=== PATIENT | male | born 1955 | race Caucasian/White ===

== ENCOUNTER 2021-07-18 06:25 | Day surgery (SDC) | payer MEDICARE, SELFPAY ==
[2021-07-12 14:37] VITALS: BMI 32.3
--- NOTE | 2021-07-17 10:32 | P.CONAN_ITS ---
Documented by User: Cate Edwards NP 07/17/21 10:32 HPI - Anesthesia Eval Consult details Narrative: 66yo M for Colonoscopy [facility] Past Medical History Medical History (Updated 07/12/21 @ 14:34 by Christina Croft RN) Gout HTN (hypertension) Surgical History Surgical History (Updated 07/12/21 @ 14:32 by Christina Croft RN) H/O colonoscopy History of open reduction and internal fixation (ORIF) procedure Social History Social History Patient Tobacco Use Status: Tobacco use Unknown Advance Directives: No Advance Directives Information Provided: Yes Advance Directives on File: No Meds Allergies Allergy/AdvReac Type Severity Reaction Status Date / Time Seasonal Allergies Allergy Unknown Unknown Verified 07/12/21 14:34 Home Medications Medication Instructions Recorded Confirmed Last Taken Type amlodipine 2.5 mg tablet 1 tab PO DAILY 07/12/21 07/12/21 Unknown History multivitamin 1 tab PO DAILY 07/12/21 07/12/21 Unknown History probenecid 500 mg tablet 1 tab PO BID 07/12/21 07/12/21 Unknown History valsartan 80 mg tablet 1 tab PO DAILY 07/12/21 07/12/21 Unknown History Exam Exam Date and Time: July 17, 2021 1032 Height,Weight and Vital Signs: Height 6 ft 0.75 in Weight 110.223 kg Assessment and Plan Assessment Anesthesia Assessment: Chart Reviewed Documented by User: Vane Magana MD 07/18/21 07:37 [facility] Past Medical History Medical History (Updated 07/12/21 @ 14:34 by Christina Croft RN) Gout HTN (hypertension) Family History Family history of problems with anesthesia: No Surgical History Surgical History (Updated 07/12/21 @ 14:32 by Christina Croft RN) H/O colonoscopy History of open reduction and internal fixation (ORIF) procedure History of Problems with Anesthesia: No Social History Social History Patient Tobacco Use Status: Tobacco use Unknown Advance Directives: No Advance Directives Information Provided: Yes Advance Directives on File: No Meds Allergies Allergy/AdvReac Type Severity Reaction Status Date / Time Seasonal Allergies Allergy Unknown Unknown Verified 07/12/21 14:34 Home Medications Medication Instructions Recorded Confirmed Last Taken Type amlodipine 2.5 mg tablet 1 tab PO DAILY 07/12/21 07/12/21 Unknown History multivitamin 1 tab PO DAILY 07/12/21 07/12/21 Unknown History probenecid 500 mg tablet 1 tab PO BID 07/12/21 07/12/21 Unknown History valsartan 80 mg tablet 1 tab PO DAILY 07/12/21 07/12/21 Unknown History Exam Height,Weight and Vital Signs: Height 6 ft 0.75 in Weight 110.223 kg Vital Signs Temp Pulse Resp BP Pulse Ox 07/18/21 06:35 98.3 F 80 16 132/90 H 98 Airway Mallampati Class: III TM Dist: >3cm Neck ROM: Full Loose/Missing/Broken Teeth: Yes (Some extractions) Heart: RRR Lungs: CTAN Assessment and Plan Assessment Anesthesia Assessment: Anesthesia Plan Discussed Final Anesthetic Review Family History of Problems with Anesthesia: No History of Problems with Anesthesia: No NPO: Yes ASA Class: II Final Preanesthetic Review: No Changes in Pt Med Stat, Meds/Allgs Chart Reviewed, Consent Obtained/Reviewed and Anes Risks/Benef Reviewed Patient Risk: Low Procedure Risk: Low Assessment/Block/Sedation in SS: Assess/Block/Sedation-SS Anesthetic Plan Anesthetic Plan: MAC: Disposition: Standard PACU
[2021-07-18 06:35] VITALS: BP 132/90; PULSE 80; RESP 16; TEMP 36.8; O2SAT 98
[2021-07-18] MEDS: Lactated Ringers 1,000 ML 100 ML IVCONT (06:48)
--- NOTE | 2021-07-18 07:25 | MHC.SHP ---
Pre-Procedural Eval Section A Date of Service: 07/18/21 Section B Chief Complaint: screening Details of Present Illness: see H&P no changes Relevant Family History (Specify if Yes): No Relevant Social History: None Present Medications: see Short Stay Collaborative assessment Medical History: No relevant PMH History of Previous Operations: No relevant previous surgery Allergies: Allergies Allergy/AdvReac Type Severity Reaction Status Date / Time Seasonal Allergies Allergy Unknown Unknown Verified 07/12/21 14:34 Review of Systems Sugical H&P ROS: Negative: Constitution, Cardiovascular, Respiratory, Neurological, Psychiatric, Hem-Onc, Allergic/Immunologic, Gastrointestinal, Genitourinary, Musculoskeletal, Integumentary, Endocrine and Eyes/Ears/Nose/Throat Exam Surgical H&P Exam: Normal: HEENT, Normal: Heart, Normal: Lungs, Normal: Extremities, Normal: Abdomen, Normal: Skin and Normal: Neurological Plan Diagnosis/Plan: Unchanged I have reviewed the history and physical and performed a pertinent physical examination on my patient. No changes have occurred unless specified.
--- NOTE | 2021-07-18 08:07 | PM.OP ---
Brief Operative Note Date of Service: 07/18/21 Pre-op diagnosis: screening Post-op diagnosis: same (colon polyps) Surgeon: Stas Hodgson Anesthesia: MAC Was an Executive Sous Chef used for this Procedure?: No Estimated blood loss (mL): 5 Pathology: other (polyps x4) Condition: stable Disposition: PACU
[2021-07-18 08:08] VITALS: BP 106/63; PULSE 73; RESP 20; TEMP 36.6; O2SAT 97
[2021-07-18 08:23] VITALS: BP 112/73; PULSE 72; RESP 20; TEMP 36.6; O2SAT 97
--- NOTE | 2021-07-18 19:57 | OP_ITS ---
SURGEON: Stas Hodgson MD INDICATIONS: Colon cancer screening and prior history of adenomatous colon polyps. PREOPERATIVE DIAGNOSIS: POSTOPERATIVE DIAGNOSIS: PROCEDURE PERFORMED: ESTIMATED BLOOD LOSS: COMPLICATIONS: ANESTHESIA: ASSISTANTS: SPECIMENS: PROCEDURE: Colonoscopy to the terminal ileum with snare polypectomy and biopsy. MEDICATIONS: Monitored anesthesia care. DESCRIPTION OF PROCEDURE: History and physical were performed. The risks and benefits of the procedure were explained to the patient. Informed consent was obtained. The patient was placed in the left lateral decubitus position. A digital rectal exam was performed and was found to be normal. The Olympus pediatric video colonoscope was introduced into the rectum and advanced to the cecum without difficulty. The cecum was identified by transillumination, palpation, and identification of the ileocecal valve. Examination was performed. The scope was removed. He tolerated the procedure well and was taken to recovery area in stable condition. FINDINGS: The terminal ileum was examined and appeared normal. The visualized colonic mucosa was normal. There was some stool in the cecum and right colon, which was washed and suctioned. Multiple polyps were identified and removed as follows. Two polyps in the right colon were removed with a cold snare measuring less than 10 mm. The 1st polyp was also removed with biopsy forceps as well. In the hepatic flexure, was a less than 5 mm polyp, which was removed with biopsy forceps and at 30 cm was a 10 mm polyp, which was removed with a hot snare and recovered via suction. Retroflexed examination showed internal hemorrhoids that were moderate in size. No other polyps were identified. IMPRESSION: Colon polyps. RECOMMENDATION: Follow up the biopsy results. MD CLAUDIA Ramos/LINDAL / [id number]
== END 2021-07-18 08:57 | disposition home or self-care (01) ==
PROVIDERS: PCP Internal Medicine; Visit Provider Internal Medicine Gastroenterology
PROC: 0DJD8ZZ Inspection of Lower Intestinal Tract, Via Natural or Artificial Opening Endoscopic (ICD-10-PCS; CPT 45378; principal; 2021-07-18 07:30)
DX: Z12.11 Encounter for screening for malignant neoplasm of colon (principal); Z86.010 Personal history of colon polyps; D12.2 Benign neoplasm of ascending colon; D12.3 Benign neoplasm of transverse colon; D12.5 Benign neoplasm of sigmoid colon; K64.8 Other hemorrhoids; I10 Essential (primary) hypertension; M10.9 Gout, unspecified; R73.9 Hyperglycemia, unspecified; J30.2 Other seasonal allergic rhinitis; Z79.899 Other long term (current) drug therapy
CPT/HCPCS: 45385; 45380; 88305

== ENCOUNTER 2024-12-15 06:25 | Day surgery (SDC) | payer MEDICARE, SELFPAY ==
--- OUTSIDE RECORDS SUMMARY | 2024-11-02 12:39 | XMS_ITS | Clinical Summary ---
Author Organization [facility] [address] [place] [address] Address [address] [place] [address] Phone Care Team Providers Care Sueding Machine Operator Name Role Phone Vince Tineo MD Primary Care Provider [phone] Allergies No known active allergies Medications ketoconazole (NIZORAL) 2 % cream applied to the affected area sparing the twice daily2 04/02/2013 Active MULTIVITAMIN ORAL 1 po qd Active valsartan (DIOVAN) 80 mg tablet TAKE 1 TABLET DAILY 90 tablet 1 05/28/2024 Active naproxen (NAPROSYN) 375 mg tablet Take 1 tablet (375 mg total) by mouth 2 (two) times a day with meals. 30 tablet 1 07/23/2024 Active indomethacin (INDOCIN) 25 mg capsule Take 1 capsule (25 mg total) by mouth 3 (three) times a day if needed for mild pain (pain). 30 capsule 08/03/2024 08/04/19 26 Active amLODIPine (NORVASC) 5 mg tablet TAKE 1 TABLET DAILY 90 tablet 1 08/18/2024 Active tamsulosin (FLOMAX) 0.4 mg 24 hr capsule TAKE 1 CAPSULE DAILY; 30 MINUTES AFTER SAME MEAL EVERY DAY 90 capsule 1 08/18/2024 Active probenecid (BENEMID) 500 mg tablet TAKE 1 TABLET TWICE A DAY 180 tablet 1 08/18/2024 Active Active Problems Problem Noted Date Diagnosed Date Primary hypertension 12/31/2023 Assessment & Plan (07/16/2024 10:37 AM EDT): Aneurysm of ascending aorta without rupture ([facility] V24) 05/23/2023 Benign prostatic hyperplasia without lower urinary tract symptoms 02/26/2023 Assessment & Plan (07/16/2024 10:37 AM EDT): Calculus of gallbladder with out cholecystitis without obstruction 10/20/2019 Abnormal LFTs 03/19/2019 Assessment & Plan (07/16/2024 10:37 AM EDT): Orders: Comprehensive metabolic panel; Future Obesity (BMI 30-39.9) 03/19/2019 Colon polyps 01/28/2014 Overview (12/31/2023): q3y colonoscopy, follows with Dr. Hodgson, last one 2016 Essential hypertension, benign 01/31/2005 Gout, unspecified 01/31/2005 Overview (12/31/2023): MSU crystals R knee - 09/23/2007 Assessment & Plan (07/16/2024 10:37 AM EDT): Orders: Uric acid; Future Immunizations Name Administration Dates Next Due Influenza Quadravalent, MDCK , 0.5ml, preservative free (Flucelvax) 6mo and older 03/05/2019 Influenza Quadravalent, MDCK , 0.5ml, with preservative (Flucelvax) 6mo and older 01/15/2023,11/18/2019 Influenza trivalent, 0.5mL ( Fluad) 65yo and older 12/14/2021,12/16/2020 Influenza trivalent, 0.5mL, preservative free (Fluarix; FluLaval; Fluzone) ages 6mo and older (Afluria) 3 years and older 02/25/2008,02/19/2007,02/10/2006 Influenza trivalent, with preservative (Fluzone; Afluria) 6mo and older 03/09/2017,03/08/2016,02/17/2015,2013,01/13/2013,02/29/2012,02/19/2011,1 04/25/2009,02/16/2009,02/05/2005 Influenza, Unspecified 12/16/2020,11/18/2019, Pfizer (ages 12 & older) Biv aleshahab, COVID-19 12/14/2021 Pneumococcal conjugate 20 va lent (Prevnar 20, PCV 20) 2mo and older 07/03/2021 Td Tetanus diptheria (Tdvax) 7yo and older 01/04/2000 Tdap Tetanus diptheria acell ular pertussis (Boostrix; Adacel) 7yo and older 03/05/2019,02/16/2009 Zoster Live 10/12/2015 Zoster recombinant (Shingrix ) 19yo and older 01/20/2020,11/18/2019 Surgical History Surgery Date Site/Laterality Comments TONSILLECTOMY PROCEDURE: HISTORICAL TONSILLECTOMY ANKLE SURGERY PROCEDURE: HISTORICAL ANKLE SURGERY; COMMENT: fx 1991 OTHER SURGICAL HISTORY PROCEDURE: HISTORICAL CA BASAL CELL; COMMENT: BCC 10/04 neck (nodular and micronodular) Medical History Medical History Date Comments Essential hypertension, benign D X:Essential hypertension, benign Gout, unspecified 01/31/2005 DX:Gout, unspe cified; COMMENT: MSU crystals R knee - 09/23/2007 Colon polyps 01/28/2014 DX:Colon polyps; COMMENT: q3y colonoscopy Basal cell carcinoma DX:Basal ce ll carcinoma; COMMENT: BCC 10/04 neck (nodular and micronodular type) Family History Medical History Relation Name Comments Prostate cancer Maternal Grandfather Diabetes Maternal Grandmother fr om DM complication Arthritis Mother Arthritis Sister 1 Relation Name Status Comments Brother 1 Alive Brother 2 Alive Brother 3 Alive Father (Age 64) chf Maternal Grandfather Maternal Grandmother Mother Alive Sister 1 Sister 2 Alive Social History Tobacco Use Types Packs/Day Years Used Date Smoking Tobacco: Never Smokeless Tobacco: Never Tobacco Cessation:Counseling Given: Not Answered Alcohol Use Standard Drinks/Week Comments No 0 (1 standard drink = 0.6 oz pur e alcohol) Sex and Gender Information Value Date Recorded Sex Assigned at Not on file Legal Sex Male 1:59 AM EST Gender Identity Not on file Sexual Orientation Not on file Obstetrics History Last Filed Vital Signs Vital Sign Reading Time Taken Comments Blood Pressure 128/80 07/16/2024 9:12 AM EDT Pulse 86 07/16/2024 9:12 AM EDT Temperature 36.3 C (97.3 F) 07/16/2024 9:12 AM EDT Respiratory Rate 20 07/16/2024 9:12 AM EDT Oxygen Saturation - - Inhaled Oxygen Concentration - - Weight 104 kg (230 lb) 07/16/2024 9:12 AM EDT Height 182.9 cm (6') 07/16/2024 9:12 AM EDT Body Mass Index 31.19 07/16/2024 9:12 AM EDT Plan of Treatment Upcoming Encounters Date Type Department Care Team (Late st Contact Info) Description 11/25/2024 11:10 AM EDT Office Visit [facility] [address] [place] [address] [address] [place] [address] Marlen Huston NP [address] [place] [address] [place] [address] 01/20/2025 9:45 AM EST Office Visit Adult Medicine [facility] [address] [place] [address] Vince Tineo MD [address] [place] [id number] Health Maintenance Due Date Last Done Comments Social Influencers of Health Screening 02/24/2022 COVID-19 Vaccine (8 - Pfizer risk 2023- season) 2024 01/23/2024, 01/15/2023, 12/14/2021, Additional history exists Hypertension/CHF/CAD Annual BMP Blood Test 07/29/2024 07/30/2023, 07/30/2023 Influenza Vaccine (#1) 2024 , 01/15/2023, 12/14/2021, Additional history exists Falls Risk Assessment 07/16/2025 07/16/2024, 023 Medicare Annual Wellness Visit 07/16/2025 07/16/2024 Cholesterol Screening (Lipid Panel) 07/22/2028 07/23/2023, 07/23/2023 DTaP,Tdap,and Td Vaccines (4 - Td or Tdap) 03/05/2029 03/05/2019, 02/16/2009, 01/04/2000 RSV Immunization Adult Patients (1 - 1-dose 75+ series) 2030 Colorectal Cancer Screening: Colonoscopy 07/19/2031 07/18/2021 Hepatitis C Screening Completed 04/02/2013 Zoster Vaccines Completed 01/20/2020, 04/2019, 10/12/2015 Pneumococcal Vaccine: 50+ Years Completed 07/03/2021 Depression Screening Completed 07/09/2024, 02/27/20 HIB Vaccines Aged Out No longer eligi ble based on patient's age to complete this topic HPV Vaccines Aged Out No longer eligi ble based on patient's age to complete this topic Hepatitis A Vaccines Aged Out No long er eligible based on patient's age to complete this topic Hepatitis B Vaccines Aged Out No long er eligible based on patient's age to complete this topic IPV Vaccines Aged Out No longer eligi ble based on patient's age to complete this topic MMR Vaccines Aged Out No longer eligi ble based on patient's age to complete this topic Meningococcal ACWY Vaccine Aged Out N o longer eligible based on patient's age to complete this topic Meningococcal B Vaccine Aged Out No l onger eligible based on patient's age to complete this topic RSV Immunization Patients Under 20 months Aged Out No longer eligible based on patient's age to complete this topic Varicella Vaccines Aged Out No longer eligible based on patient's age to complete this topic Procedures Procedure Name Priority Date/Time Associated Diagnosis Comments ANNUAL BMP BLOOD TEST Routine 07/30/2023 LIPID PANEL Routine 07/23/2023 DEPRESSION SCREENING Routine 02/26/2023 FALLS RISK ASSESSMENT Routine 02/26/2023 COLONOSCOPY Routine 07/18/2021 HEPATITIS C SCREENING Routine 04/02/2013 from Last 3 Months or Most Recently Relevant to Health Maintenance Results * Annual BMP Blood Test (07/30/2023) Annual BMP Blood Test abstracted [facility] Provider HEALTH MAINTENANCE Final Result * Lipid panel (07/23/2023) [facility] LDL/HDL Ratio 3 0 - 4 Triglycerides 73 0 - 150 mg/dL Cholesterol 117 0 - 200 mg/dL HDL 41 >=40 mg/dL LDL Cholesterol 62 0 - 100 mg/dL Blood Venous blood specimen / Unknown Result [facility] Provider LAB BLOOD ORDERABLES Deysi l Result * Falls Risk Assessment (02/26/2023) [facility] Falls Risk Assessment abstracted Result [facility] Provider HEALTH MAINTENANCE Final Result * Depression Screening (02/26/2023) [facility] Depression Screening abstracted Result [facility] Provider HEALTH MAINTENANCE Final Result * Colonoscopy (07/18/2021) [facility] Colonoscopy abstracted, no interpretation Anatomical Region Laterality Modality Other [facility] Provider HEALTH MAINTENANCE Final Result * Hepatitis C Screening (04/02/2013) [facility] Hepatitis C Screening abstracted Result [facility] Provider HEALTH MAINTENANCE Final Result from Last 3 Months or Most Recently Relevant to Health Maintenance Insurance MEDICARE [facility] Care Teams Sueding Machine Operator Relationship Specialty Start Date End Date Vince Tineo MD [address] [place] [address] PCP - General Internal Medicine 01/26/15
--- OUTSIDE RECORDS SUMMARY | 2024-11-02 12:39 | XMS_ITS ---
Author Name [facility] Organization Unknown Care Team Organization Name Specialty Phone Email Start Date End Da te [facility] 01/23/2022 11/04/2023
--- OUTSIDE RECORDS SUMMARY | 2024-11-02 12:39 | XMS_ITS | Patient Health Record ---
Author Organization [facility] Address [address] [place] [address] Care Team Providers Care Cloth Examiner Name Role Phone Rivka GREGG, [facility] Primary Care Provider Stas Keating Jr Unavailable [phone] Allergies Allergen (clinical drug ingredient) Drug/Non Drug Allergy documented on EMR Reaction Allergy Type Onset Date Status season allergies (uncoded) Unknown Allergy Active Reason For Referral No Information Medications Medication SIG (Take, Route, Frequency, Duration) Notes Start Date End Date Status Diovan 80 MG 1 tablet Orally Once a day Active Indocin Not-Taking MiraLax (colon prep) 17 GM/SCOOP mixed with Gatorade or Crystal Light Orally begin at 5:00 p.m. the day before the procedure for 1 day 06/07/2021 Not-Taking PEG-3350/Electrolytes 236 GM 4000 ML Orally daily for 1 days 11/02/2024 Active Multi Complete - as directed Orally Active Probenecid 500 MG 1 tablet with food Orally qd Active amLODIPine Besylate 5 MG 1 tablet Orally Once a day Active Flomax Active Immunizations Vaccine Route Administration Date Status Comme nts Influenza Unknown 02/08/2021 Administered Social History AUDIT-C (Standard) Question Answer Notes Did you have a drink containing alcohol in the p ast year? No Points 0 Interpretation Negative Problems Problem Type SNOMED Code ICD Code Onset Dates Problem Status W/U Status Risk Notes Problem 482416374 Colon cancer screening (Z12.11) Active confirmed Problem 878566473 Special screenin g for malignant neoplasms, colon (Z12.11) Active confirmed Problem 005201921 Personal history of colonic polyps (Z86.010) Active confirmed Problem 576495734 Long-term curren t use of high risk medication other than anticoagulant (Z79.899) Active confirmed Vital Signs Heart Rate 84 /min 10/30/2024 Blood pressure diastolic 01 mm Hg 10/30/2024 Height 72.75 in 10/30/2024 Blood pressure systolic 001 mm Hg 10/30/2024 Weight 229.6 lbs 10/30/2024 BMI 30.5 kg/m2 10/30/2024 Encounters Encounter Location Date Provider Diagnosis [facility] [address] [place] [phone] 10/30/2024 Stas Hodgson Jr Special screening for malignant neoplasms, colon Z12.11 and History of adenomatous polyp of colon Z86.0101 [facility] [address] [place] [phone] 10/30/2024 Stas Hodgson Jr Assessments Encounter Date Diagnosis (ICD Code) Assessment Notes Treatment Notes Treatment Clinical Notes Section Notes 10/30/2024 Special screening for malignant neoplasms, colon (ICD-10 - Z12.11) 10/30/2024 History of adenomatous polyp of colon (ICD-10 - Z86.0101) Plan Of Treatment Future Test Test Name Order Date COLONOSCOPY 06/20/2012 COLONOSCOPY 12/15/2015 COLONOSCOPY 06/07/2021 COLONOSCOPY 10/30/2024 Next Appt Details Provider Name:Stas dorado , 12/15/2024 07:30:00 AM, [address] [place] [address] , [place], [place], [phone], Insurance Providers Payer Name Payer Address Payer Phone Subscriber Number Group Number Insured Name Patient Relationship to Insured Coverage Start Date Coverage End Date MEDICARE OF [place] [address] [place] [address] [id number] DISHA REYNOLDS Self - patient is the insured [employer] ATT[employer] CLAIMS [address] [place] [address] [phone] [id number] DISHA REYNOLDS Self - patient is the insured Medical (General) History Medical History History ICD Code Colonoscopy 03/30/16, benign lymphoid polyp, five-year followup due to prior history of tubular adenomas. HTN Gout Surgical History Surgery Date(Month/Year) 4 skin cancer surgeries Ankle fixation 1991
--- OUTSIDE RECORDS SUMMARY | 2024-11-02 12:39 | XMS_ITS | Clinical Summary ---
Author Organization [facility] Address [address] [place] [address] Care Team Providers Care Semi Driver Name Role Phone Pcp, No Primary Care Provider Unavailabl e Social History Tobacco Use Types Packs/Day Years Used Date Smoking Tobacco: Never Assessed Sex and Gender Information Value Date Recorded Sex Assigned at Not on file Legal Sex Male 1:46 PM EDT Gender Identity Not on file Sexual Orientation Not on file Plan of Treatment Health Maintenance Due Date Last Done Comments Hepatitis C Virus Screening 1955 DTaP/Tdap/Td Vaccines (1 - Tdap) 1974 Pneumococcal Vaccines 50+ (1 of 1 - PCV) 2005 Zoster (Shingles) Vaccine (1 of 2) 2005 COVID-19 Vaccine ( - 2023-2 5 season) 2023 RSV Vaccine 60 years and old er and Patients (1 - 1-dose 75+ series) 2030 Hepatitis B Vaccines Aged Out No long er eligible based on patient's age to complete this topic Care Teams Semi Driver Relationship Specialty Start Date End Date Pcp, No PCP - General General Medicine 11/29/14
[2024-12-11 12:39] VITALS: BMI 31.1
--- NOTE | 2024-12-14 08:55 | HO.ANESPROP2 ---
Documented by User: Cate Edwards NP 12/14/24 09:00 HPI - Anesthesia Eval Consult details Narrative: 69yo M for Colonoscopy [facility] Past Medical History Medical History Colon polyps Obesity Abnormal LFTs Basal cell carcinoma Calculus of gallbladder and bile duct w/cholecystitis w/o obstruction Ascending aortic aneurysm Gout HTN (hypertension) Family History Family history of problems with anesthesia: No Surgical History Surgical History History of open reduction and internal fixation (ORIF) procedure H/O colonoscopy History of Problems with Anesthesia: No Social History Social History Patient Tobacco Use Status: Never used Tobacco Have you been hit, kicked, punched, or otherwise hurt by someone within the past year? If so, by whom?: No Are you DNR?: No Advance Directives: No Advance Directives Information Provided: Yes Poor oral hygiene: No Meds Allergies Allergy/AdvReac Type Severity Reaction Status Date / Time Seasonal Allergies Allergy Unknown Unknown Verified 12/15/24 07:15 Home Medications ?Medication ?Instructions ?Recorded ?Confirmed ?Last Taken ?Type multivitamin 1 tab PO DAILY 07/12/21 12/11/24 Unknown History probenecid 500 mg tablet 1 tab PO BID 07/12/21 12/11/24 Unknown History valsartan 80 mg tablet 1 tab PO DAILY 07/12/21 12/11/24 Unknown History amlodipine 5 mg tablet 5 mg PO DAILY 12/11/24 12/11/24 12/15/24 History indomethacin 25 mg capsule 25 mg PO BIDAC 12/11/24 12/11/24 Unknown History tamsulosin 0.4 mg capsule 0.4 mg PO DAILY 12/11/24 12/11/24 Unknown History Exam Height,Weight and Vital Signs: Height 6 ft Weight 104 kg Narrative Narrative: ECHO 2024 ? Left?Ventricle: Left ventricle cavity size is normal. There is mild concentric hypertrophy. Systolic function is normal with an ejection fraction of 55-60%. There are no regional LV wall motion abnormalities. There is no diastolic dysfunction. ? Left?Atrium: Left atrium cavity size is normal. ? Right?Ventricle: Right ventricle cavity appears normal. Systolic function is normal. ? Right?Atrium: Right atrium cavity is normal. ? No significant valvular heart disease. ? Aorta: Aortic sinus 4.3 cm. Ascending aorta 4.4 cm. Transverse aorta not well visualized. Assessment and Plan Assessment Anesthesia Assessment: Chart Reviewed Final Anesthetic Review Family History of Problems with Anesthesia: No History of Problems with Anesthesia: No Documented by User: Fernando Kimball MD 12/15/24 07:22 [facility] Past Medical History Medical History Colon polyps Obesity Abnormal LFTs Basal cell carcinoma Calculus of gallbladder and bile duct w/cholecystitis w/o obstruction Ascending aortic aneurysm Gout HTN (hypertension) Functional capacity: independent ambulation Surgical History Surgical History History of open reduction and internal fixation (ORIF) procedure H/O colonoscopy Social History Social History Patient Tobacco Use Status: Never used Tobacco Have you been hit, kicked, punched, or otherwise hurt by someone within the past year? If so, by whom?: No Are you DNR?: No Advance Directives: No Advance Directives Information Provided: Yes Poor oral hygiene: No Meds Allergies Allergy/AdvReac Type Severity Reaction Status Date / Time Seasonal Allergies Allergy Unknown Unknown Verified 12/15/24 07:15 Home Medications ?Medication ?Instructions ?Recorded ?Confirmed ?Last Taken ?Type multivitamin 1 tab PO DAILY 07/12/21 12/11/24 Unknown History probenecid 500 mg tablet 1 tab PO BID 07/12/21 12/11/24 Unknown History valsartan 80 mg tablet 1 tab PO DAILY 07/12/21 12/11/24 Unknown History amlodipine 5 mg tablet 5 mg PO DAILY 12/11/24 12/11/24 12/15/24 History indomethacin 25 mg capsule 25 mg PO BIDAC 12/11/24 12/11/24 Unknown History tamsulosin 0.4 mg capsule 0.4 mg PO DAILY 12/11/24 12/11/24 Unknown History Exam Exam Date and Time: 12/15/2024 Height,Weight and Vital Signs: Height 6 ft Weight 104 kg Vc no Airway Mallampati Class: II TM Dist: >3cm Neck ROM: Full Heart: rrr Lungs: cta Other: normal Assessment and Plan Assessment Anesthesia Assessment: Anesthesia Plan Discussed Final Anesthetic Review NPO: Yes ASA Class: II Final Preanesthetic Review: No Changes in Pt Med Stat, Meds/Allgs Chart Reviewed, Consent Obtained/Reviewed and Anes Risks/Benef Reviewed Patient Risk: Low Procedure Risk: Low Anesthetic Plan Disposition: Standard PACU
[2024-12-15 06:41] VITALS: BMI 30.8
[2024-12-15] MEDS: Lactated Ringers 1,000 ML 100 ML IVCONT (06:48)
[2024-12-15 07:00] VITALS: BP 154/90; PULSE 80; RESP 18; TEMP 36.7; O2SAT 97
--- NOTE | 2024-12-15 07:28 | P.HPSUR_ITS ---
Pre-Procedural Eval Section A - 24 Hr Update-Section A only Date of Service: 12/15/24 Section B - Complete if H&P > 30 days Chief Complaint: screening,hx adenomatous colon polyps Details of Present Illness: see H&P no changes Relevant Family History (Specify if Yes): No Relevant Social History: None Present Medications: see Short Stay Collaborative assessment Medical History: No relevant PMH History of Previous Operations: No relevant previous surgery Allergies: Allergies Allergy/AdvReac Type Severity Reaction Status Date / Time Seasonal Allergies Allergy Unknown Unknown Verified 12/15/24 07:15 Review of Systems Sugical H&P ROS: Negative: Constitution, Cardiovascular, Respiratory, Neurological, Psychiatric, Hem-Onc, Allergic/Immunologic, Gastrointestinal, Genitourinary, Musculoskeletal, Integumentary, Endocrine and Eyes/Ears/ Nose/Throat Exam Surgical H&P Exam: Normal: HEENT, Normal: Heart, Normal: Lungs, Normal: Extremities, Normal: Abdomen, Normal: Skin and Normal: Neurological Plan Diagnosis/Plan: Unchanged I have reviewed the history and physical and performed a pertinent physical examination on my patient. No changes have occurred unless specified. Time Spent With Patient Time: Total time managing care of this patient today ____ minutes.
[2024-12-15 08:19] VITALS: BP 104/64; PULSE 64; RESP 18; TEMP 36.3; O2SAT 98
[2024-12-15 08:34] VITALS: BP 127/87; PULSE 72; RESP 18; TEMP 36.3; O2SAT 98
--- NOTE | 2024-12-16 07:24 | OP_ITS ---
DATE OF SERVICE: 12/15/2024 SURGEON: Stas Hodgson MD INDICATIONS: Colon cancer screening and prior history of multiple adenomatous colon polyps. PREOPERATIVE DIAGNOSIS: POSTOPERATIVE DIAGNOSIS: PROCEDURE PERFORMED: Colonoscopy to the terminal biopsy and cauterization of colon polyps. ESTIMATED BLOOD LOSS: COMPLICATIONS: ANESTHESIA: Monitored anesthesia care. ASSISTANTS: SPECIMENS: DESCRIPTION OF PROCEDURE: A history and physical performed. The risks and benefits of the procedure were explained to the patient. Informed consent was obtained. The patient was placed in the left lateral decubitus position. Pediatric video colonoscope was inserted rectum and advanced to the cecum. The cecum was identified by transillumination, palpation, and identification of ileocecal valve. Examination was performed. The scope was removed. He tolerated the procedure well and was taken to recovery area in stable condition. FINDINGS: The terminal ileum was examined and appeared normal. Visualized colonic mucosa was normal. The quality of the prep was good. Multiple polyps were identified and removed, and in the cecum, was a 20 x 7 mm polyp, which was extended along the fold. This was removed in piecemeal manner and required cauterization of the base of the polyp. The scope had to be removed and reinserted, making the procedure extended and difficult. At the hepatic flexure, was a small polyp, which was removed with a biopsy forceps and at 70 cm, a third polyp was removed with a hot snare. There was mild sigmoid diverticulosis. Retroflexed examination showed small internal hemorrhoids. IMPRESSION: Colon polyps. RECOMMENDATION: Followup the biopsy results. MD CLAUDIA Ramos/LINDAL / [id number]
== END 2024-12-15 09:10 | disposition home or self-care (01) ==
PROVIDERS: PCP Internal Medicine; Visit Provider Internal Medicine Gastroenterology
PROC: 0DJD8ZZ Inspection of Lower Intestinal Tract, Via Natural or Artificial Opening Endoscopic (ICD-10-PCS; CPT 45378; principal; 2024-12-15 07:30)
DX: Z12.11 Encounter for screening for malignant neoplasm of colon (principal); Z86.0101 Personal history of adenomatous and serrated colon polyps; D12.0 Benign neoplasm of cecum; D12.3 Benign neoplasm of transverse colon; D12.4 Benign neoplasm of descending colon; K57.30 Diverticulosis of large intestine without perforation or abscess without bleeding; K64.8 Other hemorrhoids; I10 Essential (primary) hypertension; I71.21 Aneurysm of the ascending aorta, without rupture; M10.9 Gout, unspecified; Z85.828 Personal history of other malignant neoplasm of skin; Z79.899 Other long term (current) drug therapy; Z98.890 Other specified postprocedural states
CPT/HCPCS: 45388; 45385; 45380; 88305; J2003; J2704; J3010